=== PATIENT | male | born 1995 | race African-American/Black ===

== ENCOUNTER 2021-04-29 22:28 | Emergency (ER) | payer BC, SELFPAY ==
[2021-04-29] MEDS ORDERED: Acetaminophen 500 MG TAB ONE (23:00)
== END 2021-04-29 23:36 | disposition home or self-care (01) ==
LOC: ERS 22:28
DX: S80.11XA Contusion of right lower leg, initial encounter (principal); W21.81XA Striking against or struck by football helmet, initial encounter

== ENCOUNTER 2021-05-02 23:39 | Emergency (ER) | payer SELFPAY ==
[2021-05-03 15:08] LABS: SARS-CoV-2 PCR by NAA DETECTED (NotDetected)
== END 2021-05-03 00:28 | disposition home or self-care (01) ==
LOC: ERS 23:39
DX: U07.1 COVID-19 (principal)
CPT/HCPCS: 99283; U0003; U0005